=== PATIENT | female | born 2000 | race Two or more races ===

== ENCOUNTER → 2023-07-08 | Emergency (ER) | payer OTHER ==
[~2023-07-08] MED LIST: ACETAMINOPHEN 500 MG TAB ONE; NA CHLORIDE 0.9% 1,000 ML ONE
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
[2023-07-08 10:06] LABS: Absolute Lymphocytes (CBC) 0.3 K/uL (0.7-4.9); Hematocrit 38.9 % (36.0-45.0); Lymphocytes % 6.8 % (15.3-44.8); MCV 87.3 fL (80-100); MPV 7.2 fL (7.6-11.3); Platelets 265 thou/uL (152-406); RBC Red Blood Cell Count 4.45 M/uL (3.86-4.86)
--- NOTE | 2023-07-08 10:10 | RAD REPORT ---
EXAM DESCRIPTION: RAD - Chest Single View - 07/08/2023 10:00 am CLINICAL HISTORY: CHEST PAIN COMPARISON: No comparisons FINDINGS: Lines: None. Lungs: No evidence of edema or pneumonia. Pleural: No significant pleural effusions or pneumothorax. Cardiac: The heart size is within normal limits. Mediastinum: Within normal limits. Bones: No acute fractures. Other: None IMPRESSION: No acute cardiopulmonary disease.
[2023-07-08 10:25] LABS: ALT/SGPT 26 U/L (13-56); AST/SGOT 16 U/L (15-37); Albumin 4.2 g/dL (3.4-5.0); Alkaline Phosphatase 80 U/L (45-117); BUN Blood Urea Nitrogen 6 mg/dL (7-18); Bicarbonate 19 mEq/L (21-32); Bilirubin Direct 0.1 mg/dL (0-0.2); Bilirubin Indirect, Calculated 0.4 mg/dL (0.2-0.8); Bilirubin Total 0.5 mg/dL (0.2-1.0); Glomerular Filtration Rate 89 ml/min (=/>90); Glucose Level 96 mg/dL (74-106); Magnesium 1.9 mg/dL (1.6-2.4); Potassium 3.8 mEq/L (3.5-5.1); Protein, Total 7.9 g/dL (6.4-8.2); Sodium Level 136 mEq/L (136-145); Thyroid Stimulating Hormone 0.689 uIU/mL (0.358-3.740)
[2023-07-08 10:26] LABS: Troponin High Sensitivity < 3.0 pg/mL (<58.9)
[2023-07-08 10:29] LABS: SARS-CoV-2 Antigen Rapid Res Negative (Negative)
--- NOTE | 2023-07-08 10:52 | EDPHYS ---
Physician Documentation [facility] Name: Kimberly Barkley Age: 22 yrs Sex: Female : 2000 Arrival Date: 07/08/2023 Time: 09:16 Bed 17 Private MD: ED Physician Arnaud Chase HPI: 07/08 09:48 This 22 yrs old Female presents to ER via Ambulatory with complaints of Fever, Painful rt Cough. 09:48 Patient presents to the ED with fever, cough, chest pain, worse with coughing and deep rt inspiration starting last night. Pain is localized to the left anterior chest. Denies difficulty breathing. Denies other acute complaints at this time, symptoms are moderate in severity, no other aggravating or elevating factors.. Historical: - Allergies: 09:30 No Known Allergies; aa5 - PMHx: 09:30 None; aa5 - PSHx: 09:30 None; aa5 - Immunization history:: Adult Immunizations unknown. - Social history:: Smoking status: Patient denies any tobacco usage or history of. - Family history:: not pertinent. ROS: 09:48 Abdomen/GI: Negative for abdominal pain, nausea, vomiting, diarrhea, and constipation, rt MS/Extremity: Negative for injury and deformity, Skin: Negative for injury, rash, and discoloration, Neuro: Negative for headache, weakness, numbness, tingling, and seizure, Psych: Negative for depression, anxiety, suicide ideation, homicidal ideation, and hallucinations, 09:48 Constitutional: Positive for body aches, fatigue, fever, malaise, 09:48 Cardiovascular: Positive for chest pain, Negative for edema, 09:48 Respiratory: Positive for cough, Negative for shortness of breath, Exam: 09:48 Constitutional: This is a well developed, well nourished patient who is awake, alert, rt and in no acute distress. Head/Face: Normocephalic, atraumatic. ENT: Nares patent. No nasal discharge, no septal abnormalities noted. Tympanic membranes are normal and external auditory canals are clear. Oropharynx with no redness, swelling, or masses, exudates, or evidence of obstruction, uvula midline. Mucous membranes moist. Chest/axilla: Normal chest wall appearance and motion. Nontender with no deformity. No lesions are appreciated. Cardiovascular: Regular rate and rhythm with a normal S1 and S2. No gallops, murmurs, or rubs. Normal PMI, no JVD. No pulse deficits. Respiratory: Lungs have equal breath sounds bilaterally, clear to auscultation and percussion. No rales, rhonchi or wheezes noted. No increased work of breathing, no retractions or nasal flaring. Abdomen/GI: Soft, non-tender, with normal bowel sounds. No distension or tympany. No guarding or rebound. No evidence of tenderness throughout. Skin: Warm, dry with normal turgor. Normal color with no rashes, no lesions, and no evidence of cellulitis. MS/ Extremity: Pulses equal, no cyanosis. Neurovascular intact. Full, normal range of motion. Neuro: Awake and alert, GCS 15, oriented to person, place, time, and situation. Cranial nerves II-XII grossly intact. Motor strength 5/5 in all extremities. Sensory grossly intact. Cerebellar exam normal. Normal gait. Psych: Awake, alert, with orientation to person, place and time. Behavior, mood, and affect are within normal limits. 09:48 ECG was reviewed by the Attending Physician. Vital Signs: 09:21 BP 111 / 73; Pulse 130; Resp 18 S; Temp 100.2(O); Pulse Ox 98% on R/A; Weight 77.11 kg aa5 (R); Height 5 ft. 4 in. (R); 09:59 BP 111 / 73; Pulse 116; Resp 15; Pulse Ox 100% on R/A; hb 09:21 Body Mass Index 29.18 (77.11 kg, 162.56 cm) aa5 MDM: 09:30 Patient medically screened. rt 12:54 Differential diagnosis: Flu, pneumonia, pulmonary embolism. HEART Score: History: rt Slightly Suspicious (0), ECG: Normal (0), Age: < or = 45 years (0), Risk Factors: No Risk Factors Known (0), Troponin: < or = 1 x Normal Limit (0), Total Score = 0. Data reviewed: vital signs, nurses notes, lab test result(s), EKG, radiologic studies. Consideration of Admission/Observation Escalation of care including admission/observation considered. Rate improving, labs benign, given chronicity symptoms, 1 set of enzymes is sufficient to rule out acute coronary syndrome, D-dimer negative, CT angiogram not required right pulmonary embolism. Stable for outpatient care, found to have fluid.. I considered the following discharge prescriptions or medication management in the emergency department Medications were administered in the Emergency Department. See MAR. Independent interpretation of the following test(s) in the Emergency Department X-Ray: My interpretation is No consolidation seen on interpretation of x-ray images. Counseling: I had a detailed discussion with the patient and/or guardian regarding the historical points, exam findings, and any diagnostic results supporting the discharge/admit diagnosis, lab results, radiology results, the need for outpatient follow up, to return to the emergency department if symptoms worsen or persist or if there are any questions or concerns that arise at home. 07/08 09:39 Order name: Basic Metabolic Panel; Complete Time: 10:40 07/08 09:39 Order name: CBC with Diff; Complete Time: 10:17 07/08 09:39 Order name: D-Dimer; Complete Time: 10:17 07/08 09:39 Order name: LFT's; Complete Time: 10:40 07/08 09:39 Order name: Magnesium; Complete Time: 10:40 07/08 09:39 Order name: Troponin HS; Complete Time: 10:40 07/08 09:39 Order name: Test, Serum; Complete Time: 10:40 07/08 09:39 Order name: Lactate w/ 2H reflex if indic.; Complete Time: 10:40 07/08 09:39 Order name: TSH; Complete Time: 10:40 07/08 09:47 Order name: Influenza Screen (a \T\ B); Complete Time: 10:40 07/08 09:47 Order name: SARS RAPID; Complete Time: 10:40 07/08 09:39 Order name: XRAY Chest (1 view); Complete Time: 10:17 07/08 09:39 Order name: EKG; Complete Time: 09:39 07/08 09:39 Order name: Cardiac monitoring; Complete Time: 09:41 07/08 09:39 Order name: EKG - Nurse/Tech; Complete Time: 09:47 07/08 09:39 Order name: IV Saline Lock; Complete Time: 09:41 07/08 09:39 Order name: Labs collected and sent; Complete Time: 09:41 07/08 09:39 Order name: O2 Per Protocol; Complete Time: :41 rt 07/08 09:39 Order name: O2 Sat Monitoring; Complete Time: :41 rt EC:48 Rate is 122 beats/min. Rhythm is regular, Sinus tachycardia with No ectopy. QRS [place] is rt Normal. SC interval is normal. QRS interval is normal. QT interval is normal. No Q waves. No ST changes noted. Interpreted by me. Administered Medications: Drug: NS 0.9% IV 1000 ml IV at 1 bolus Per protocol; 1000 mL bolus Route: IV; Rate: 1 hb bolus; Site: right forearm; Drug: Acetaminophen PO 1000 mg PO once Route: PO; hb Disposition Summary: 07/08/23 10:51 Discharge Ordered Notes: Location: Home rt Problem: new rt Symptoms: have improved rt Condition: Stable rt Diagnosis - Influenza due to identified novel influenza A virus rt Followup: rt - With: Private Physician - When: 2 - 3 days - Reason: Discharge Instructions: - Discharge Summary Sheet rt - Influenza, Adult, [place] rt Forms: - Work release form eb - Medication Reconciliation Form rt - Thank You Letter rt - Antibiotic Education rt - Prescription Opioid Use rt - Patient Portal Instructions rt - Leadership Thank You Letter rt Prescriptions: - Tamiflu 75 mg Oral capsule - take 1 tablet ORAL route every 12 hours for 5 days; 10 tablet; Refills: 0, rt Product Selection Permitted Signatures: Dispatcher [employer] Gladis Page, RN RN aa5 Gayle Cooper, BRYANT RN Arnaud Chase MD MD rt
--- NOTE | 2023-07-08 10:52 | ER ---
Nurse's Notes [facility] Name: Kimberly Barkley Age: 22 yrs Sex: Female : 2000 Arrival Date: 07/08/2023 Time: 09:16 Bed 17 Private MD: Diagnosis: Influenza due to identified novel influenza A virus Presentation: 07/08 09:21 Chief complaint: Patient states: headache, cough, chest pain with cough, body aches, aa5 and temperature up to 100.7*F at home since last night. 09:21 Coronavirus screen: cough unrelated to allergies, fever. Ebola Screen: Patient denies aa5 travel to an Ebola-affected area in the 21 days before illness onset. Initial Sepsis Screen: Does the patient meet any 2 criteria? HR > 90 bpm. Does the patient have a suspected source of infection? No. Patient's initial sepsis screen is negative. Risk Assessment: Do you want to hurt yourself or someone else? Patient reports no desire to harm self or others. Onset of symptoms was July 07, 2023. 09:21 Acuity: HIMANSHU 3 aa5 09:21 Method Of Arrival: Ambulatory aa5 Historical: - Allergies: 09:30 No Known Allergies; aa5 - PMHx: 09:30 None; aa5 - PSHx: 09:30 None; aa5 - Immunization history:: Adult Immunizations unknown. - Social history:: Smoking status: Patient denies any tobacco usage or history of. - Family history:: not pertinent. Screenin:34 [facility] ED Fall Risk Assessment (Adult) Score/Fall Risk Level 0 - 2 = Low Risk hb Oriented to surroundings, Maintained a safe environment, Educated pt \T\ family on fall prevention, incl call for assistance when getting out of bed. Abuse screen: Denies threats or abuse. Denies injuries from another. Nutritional screening: No deficits noted. Tuberculosis screening: No symptoms or risk factors identified. Assessment: 09:34 General: Appears in no apparent distress. Behavior is calm, cooperative. Pain: Pain hb currently is 3 out of 10 on a pain scale. Neuro: Level of Consciousness is awake, alert, obeys commands, Oriented to person, place, time, situation. Cardiovascular: Patient's skin is warm and dry. Respiratory: Reports cough that is pain with cough Respiratory effort is even, unlabored, Respiratory pattern is regular, symmetrical. GI: No signs and/or symptoms were reported involving the gastrointestinal system. : No signs and/or symptoms were reported regarding the genitourinary system. EENT: No signs and/or symptoms were reported regarding the EENT system. Derm: Skin is pink, warm \T\ dry. Musculoskeletal: No signs and/or symptoms reported regarding the musculoskeletal system. Vital Signs: 09:21 BP 111 / 73; Pulse 130; Resp 18 S; Temp 100.2(O); Pulse Ox 98% on R/A; Weight 77.11 kg aa5 (R); Height 5 ft. 4 in. (R); 09:59 BP 111 / 73; Pulse 116; Resp 15; Pulse Ox 100% on R/A; hb 09:21 Body Mass Index 29.18 (77.11 kg, 162.56 cm) aa5 ED Course: 09:19 Patient arrived in ED. mr 09:21 Arnaud Chase MD is Attending Physician. rt 09:21 Arm band placed on. aa5 09:32 Triage completed. aa5 09:34 Patient has correct armband on for positive identification. hb 09:34 No provider procedures requiring assistance completed. hb 09:41 Inserted saline lock: 20 gauge in right forearm, using aseptic technique. mb9 09:47 Basic Metabolic Panel Sent. hb 09:47 CBC with Diff Sent. hb 09:47 D-Dimer Sent. hb 09:47 LFT's Sent. hb 09:47 Magnesium Sent. hb 09:47 Troponin HS Sent. hb 09:58 SARS RAPID Sent. hb 09:58 Influenza Screen (a \T\ B) Sent. hb 09:59 Provided Education on: tests, result times.. hb 10:02 XRAY Chest (1 view) In Process Unspecified. EDMS Administered Medications: 09:58 Drug: NS 0.9% IV 1000 ml IV at 1 bolus Per protocol; 1000 mL bolus Route: IV; Rate: 1 hb bolus; Site: right forearm; 09:58 Drug: Acetaminophen PO 1000 mg PO once Route: PO; hb Medication: 09:34 VIS not applicable for this client. hb Outcome: 10:51 Discharge ordered by . rt 11:21 Discharged to home ambulatory, hb 11:21 Condition: stable 11:21 Discharge instructions given to patient, Instructed on discharge instructions, follow up and referral plans. medication usage, Demonstrated understanding of instructions, follow-up care, medications, Prescriptions given X 1, 11:21 Patient left the ED. Signatures: Dispatcher [employer] EDHI BongBabs, Luis Daniel Cary mr GagnonGladis, RN RN aa5 Gayle Cooper RN RN Babs Dunham, BRYANT RN mb9 Arnaud Chase MD MD rt Corrections: (The following items were deleted from the chart) 09:32 09:21 Onset of symptoms was July 08, 2023 [place]
[2023-07-08 13:52] VITALS: BP 111/73; TEMP 100.2; O2SAT 100
== END ==
LOC: ER 09:16
DX: J10.1 Influenza due to other identified influenza virus with other respiratory manifestations (principal); Z11.52 Encounter for screening for COVID-19
CPT/HCPCS: 93005; 85025; 80048; 36415; 83735; 84703; 85379; 80076; 83605; 84443; 84484; 87804 ×2; 71045; 87811; J7030